=== PATIENT | male | born 1985 | race Hispanic/Latino ===

== ENCOUNTER 2016-11-18 12:48 | Emergency (ER) | payer OTHER ==
[2016-11-19] MEDS ORDERED: Acetaminophen 500 MG TAB ONE (00:17)
== END 2016-11-18 14:17 | disposition left against medical advice (07) ==
LOC: ERS 12:48
DX: Z53.21 Procedure and treatment not carried out due to patient leaving prior to being seen by health care provider (principal)

== ENCOUNTER 2017-01-08 00:15 | Emergency (ER) | payer BC | END 2017-01-08 01:55 | disposition home or self-care (01) | LOC: ERS 00:15 | DX: K04.7 Periapical abscess without sinus (principal) | CPT/HCPCS: 99282 ==

== ENCOUNTER 2017-05-11 05:39 | Emergency (ER) | payer BC, OTHER, SELFPAY | END 2017-05-11 06:25 | disposition home or self-care (01) | LOC: ERS 05:39 | DX: L03.116 Cellulitis of left lower limb (principal) | CPT/HCPCS: 99282 ==

== ENCOUNTER 2017-08-29 18:51 | Emergency (ER) | payer BC, SELFPAY | END 2017-08-29 19:55 | disposition home or self-care (01) | LOC: ERS 18:51 | DX: L73.9 Follicular disorder, unspecified (principal) | CPT/HCPCS: 99283 ==

== ENCOUNTER 2017-09-09 16:42 | Emergency (ER) | payer BC ==
[2017-09-09] MEDS ORDERED: Ketorolac Tromethamine 30 MG/ML VIAL ONE (17:16)
== END 2017-09-09 17:43 | disposition home or self-care (01) ==
LOC: ERS 16:42
DX: K02.9 Dental caries, unspecified (principal)
CPT/HCPCS: 96372; J1885

== ENCOUNTER 2017-10-10 04:45 | Emergency (ER) | payer BC | END 2017-10-10 05:51 | disposition home or self-care (01) | LOC: ERS 04:45 | DX: L02.211 Cutaneous abscess of abdominal wall (principal) | CPT/HCPCS: 99282 ==

== ENCOUNTER 2017-10-22 04:55 | Emergency (ER) | payer BC | END 2017-10-22 05:38 | disposition home or self-care (01) | LOC: ERS 04:55 | DX: L73.9 Follicular disorder, unspecified (principal) | CPT/HCPCS: 99283 ==

== ENCOUNTER 2017-12-01 00:32 | Emergency (ER) | payer BC | END 2017-12-01 01:56 | disposition home or self-care (01) | LOC: ERS 00:32 | DX: L73.9 Follicular disorder, unspecified (principal) | CPT/HCPCS: 99282 ==

== ENCOUNTER 2017-12-30 01:36 | Emergency (ER) | payer BC | END 2017-12-30 02:33 | disposition home or self-care (01) | LOC: ERS 01:36 | DX: L02.214 Cutaneous abscess of groin (principal) | CPT/HCPCS: 10060 ==

== ENCOUNTER 2018-08-28 00:57 | Emergency (ER) | payer BC ==
[2018-08-28] MEDS ORDERED: Adacel (T-DAP) 0.5 ML SYRINGE ONE (01:46)
== END 2018-08-28 01:50 | disposition home or self-care (01) ==
LOC: ERS 00:57
DX: L02.415 Cutaneous abscess of right lower limb (principal); L03.115 Cellulitis of right lower limb
CPT/HCPCS: 90715; 99282

== ENCOUNTER 2019-01-04 00:21 | Emergency (ER) | payer BC | END 2019-01-04 00:57 | disposition home or self-care (01) | LOC: ERS 00:21 | DX: K02.9 Dental caries, unspecified (principal); K03.81 Cracked tooth | CPT/HCPCS: 99283 ==

== ENCOUNTER 2019-01-19 03:20 | Emergency (ER) | payer BC | END 2019-01-19 04:50 | disposition left against medical advice (07) | LOC: ERS 03:20 | DX: Z53.21 Procedure and treatment not carried out due to patient leaving prior to being seen by health care provider (principal) ==

== ENCOUNTER 2019-01-20 05:13 | Emergency (ER) | payer BC | END 2019-01-20 05:33 | disposition home or self-care (01) | LOC: ERS 05:13 | DX: K04.7 Periapical abscess without sinus (principal) | CPT/HCPCS: 99282 ==

== ENCOUNTER 2019-01-26 22:35 | Emergency (ER) | payer BC | END 2019-01-26 23:39 | disposition home or self-care (01) | LOC: ERS 22:35 | DX: K04.7 Periapical abscess without sinus (principal) | CPT/HCPCS: 99282 ==

== ENCOUNTER 2019-02-11 23:00 | Emergency (ER) | payer BC | END 2019-02-12 01:00 | disposition home or self-care (01) | LOC: ERS 23:00 | DX: K04.7 Periapical abscess without sinus (principal); K12.0 Recurrent oral aphthae | CPT/HCPCS: 99283 ==

== ENCOUNTER 2019-02-18 14:56 | Emergency (ER) | payer BC | END 2019-02-18 17:39 | disposition home or self-care (01) | LOC: ERS 14:56 | DX: K04.7 Periapical abscess without sinus (principal) | CPT/HCPCS: 99282 ==

== ENCOUNTER 2019-09-30 01:20 | Emergency (ER) | payer BC | END 2019-09-30 03:40 | disposition home or self-care (01) | LOC: ERS 01:20 | DX: L02.224 Furuncle of groin (principal) | CPT/HCPCS: 99282 ==

== ENCOUNTER 2019-10-16 00:02 | Emergency (ER) | payer BC | END 2019-10-16 00:44 | disposition home or self-care (01) | LOC: ERS 00:02 | DX: L73.9 Follicular disorder, unspecified (principal) | CPT/HCPCS: 99283 ==

== ENCOUNTER 2022-01-10 04:09 | Emergency (ER) | payer BC | END 2022-01-10 05:09 | disposition home or self-care (01) | LOC: ERS 04:09 | DX: K02.9 Dental caries, unspecified (principal) | CPT/HCPCS: 99282 ==

== ENCOUNTER 2024-11-24 21:42 | Emergency (ER) | payer BC ==
[2024-11-24] MEDS ORDERED: Sulfameth/Trimethoprim DS 800-160mg TAB ONE (22:53)
== END 2024-11-24 22:51 | disposition home or self-care (01) ==
LOC: ERS 21:42
DX: L02.31 Cutaneous abscess of buttock (principal)
CPT/HCPCS: 99282